=== PATIENT | female | born 1970 | race Hispanic/Latino ===

== ENCOUNTER 2018-01-19 16:26 | Emergency (ER) | payer OTHER, MEDICARE ==
[2018-01-19 16:32] VITALS: BMI 33.9
--- NOTE | 2018-01-19 18:05 | ED PDOC ---
HPI: Headache Time Seen by Provider: 01/19/18 16:51 Chief Complaint (Nursing): Weakness/Neurological Deficit Chief Complaint (Provider): headache History/Exam Limitations: no limitations Quality: Sharp Preceeding Symptoms: Visual Disturbances Associated Symptoms: Blurred Vision. denies: Nausea, Vomiting Additional Complaint(s): 47yo w h/o posttraumatic epilepsy and hypothyroid, reports RIGHT sided facial weakness and numbness. Started Friday morning (2 days ago) and was preceded by eye allergy symptoms RIGHT eye the day prior (tearing, redness) which have since resolved. She reports inability to move muscles around RIGHT eye and check , but this also has improved and has only milder decrease strength. However evening at 11pm pt had sudden onset severe sharp posterior headache, midline, persisted throughout the evening and after multiple attempts for migraine relief (thought this did not feel like her typical migraine,) she took ibuprofen 800mg and by 8am headache improved, but persists mildly. Presented to PMD and when pt was unable to read with RIGHT eye, advised ER evaluation. Denies fever, denies weakness or numbness elsewhere. Past Medical History Reviewed: Historical Data, Nursing Documentation, Vital Signs Vital Signs: Last Vital Signs Temp 97.6 F 01/19/18 16:32 Pulse 96 H 01/19/18 16:32 Resp 20 01/19/18 16:32 BP 127/74 01/19/18 16:32 Pulse Ox 97 01/19/18 16:32 - Medical History PMH: Hypothyroidism, Seizures - Surgical History Surgical History: Appendectomy, Cholecystectomy, Tonsillectomy Other surgeries: Pancreatic duct correction, multiple times - Family History Family History: States: Hypertension - Social History Current smoker - smoking cessation education provided: No Alcohol: None Drugs: Denies - Home Medications Home Medications: Ambulatory Orders Medication Instructions Recorded Cyclobenzaprine [Flexeril] 5 mg PO Q8 PRN #10 tab 01/19/18 predniSONE [Prednisone] 60 mg PO DAILY 10 Days tab 01/19/18 - Allergies Allergies/Adverse Reactions: Allergies Allergy/AdvReac Type Severity Reaction Status Date / Time phenytoin [From Dilantin] Allergy RASH Verified 01/19/18 16:34 Sulfa (Sulfonamide Allergy RASH Verified 01/19/18 16:34 Antibiotics) Review of Systems ROS Statement: Except As Marked, All Systems Reviewed And Found Negative (and as per HPI) Eyes: Positive for: Vision Change, Redness Musculoskeletal: Positive for: Neck Pain Neurological: Positive for: Weakness, Numbness, Headache. Negative for: Incoordination, Change in Speech, Confusion, Seizures Physical Exam - Reviewed Nursing Documentation Reviewed: Yes Vital Signs Reviewed: Yes - Physical Exam Appears: Positive for: Non-toxic, No Acute Distress Head Exam: Positive for: ATRAUMATIC, NORMOCEPHALIC Skin: Positive for: Warm, Dry Eye Exam: Positive for: EOMI, PERRL ENT: Negative for: Pharyngeal Erythema, Tonsillar Exudate Neck: Positive for: Painless ROM, Supple Cardiovascular/Chest: Positive for: Regular Rate, Rhythm, Chest Non Tender. Negative for: Murmur Respiratory: Positive for: Normal Breath Sounds. Negative for: Wheezing, Respiratory Distress Gastrointestinal/Abdominal: Positive for: Soft. Negative for: Tenderness Back: Positive for: Normal Inspection. Negative for: L CVA Tenderness, R CVA Tenderness Extremity: Positive for: Normal ROM. Negative for: Capillary Refill Lymphatic: Negative for: Adenopathy Neurologic/Psych: Positive for: Alert, Oriented (x3), Motor/Sensory Deficits ( RIGHT face: subtle decreased light touch), Cerebellar Tests (normal). Negative for: Aphasia, Facial Droop - Laboratory Results Result Diagrams: 01/19/18 18:09 01/19/18 18:09 - ECG O2 Sat by Pulse Oximetry: 97 Medical Decision Making Medical Decision [place] woman w h/o migraine w transient RIGHT facial droop and persistent numbness and severe headache Ddx include but not limited to ICH, intracerebral mass, atypical migraine, [place] palsy. Time: 1846 CT Head FINDINGS: HEMORRHAGE: No intracranial hemorrhage. BRAIN: No mass effect or edema. No atrophy or chronic microvascular ischemic changes. VENTRICLES: Unremarkable. No hydrocephalus. CALVARIUM: Unremarkable. PARANASAL SINUSES: Unremarkable as visualized. No significant inflammatory changes. MASTOID AIR CELLS: Unremarkable as visualized. No inflammatory changes. OTHER FINDINGS: Cavum septum pellucidum common normal variant IMPRESSION: No acute intracranial abnormalities. No significant findings to account for the clinical presentation. Time: 2113 CTA Head FINDINGS: RIGHT INTERNAL CAROTID ARTERY: No acute findings. Intracranial segment is patent with no significant stenosis. No aneurysm. RIGHT ANTERIOR CEREBRAL ARTERY: Unremarkable. No occlusion or significant stenosis. No aneurysm. RIGHT MIDDLE CEREBRAL ARTERY: Unremarkable. No occlusion or significant stenosis. No aneurysm. RIGHT POSTERIOR CEREBRAL ARTERY: Unremarkable. No occlusion or significant stenosis. No aneurysm. RIGHT VERTEBRAL ARTERY: Unremarkable as visualized. LEFT INTERNAL CAROTID ARTERY: No acute findings. Intracranial segment is patent with no significant stenosis. No aneurysm. LEFT ANTERIOR CEREBRAL ARTERY: Unremarkable. No occlusion or significant stenosis. No aneurysm. LEFT MIDDLE CEREBRAL ARTERY: Unremarkable. No occlusion or significant stenosis. No aneurysm. LEFT POSTERIOR CEREBRAL ARTERY: Unremarkable. No occlusion or significant stenosis. No aneurysm. LEFT VERTEBRAL ARTERY: Unremarkable as visualized. BASILAR ARTERY: Unremarkable. No occlusion or significant stenosis. No aneurysm. IMPRESSION: No acute findings Time: 2121 CTA Neck FINDINGS: VASCULATURE: RIGHT COMMON CAROTID ARTERY: Unremarkable. No significant stenosis. No dissection or occlusion. RIGHT INTERNAL CAROTID ARTERY: Unremarkable. Extracranial segment is patent with no significant stenosis. No dissection or occlusion. RIGHT EXTERNAL CAROTID ARTERY: Unremarkable. No occlusion. RIGHT VERTEBRAL ARTERY: Unremarkable. No significant stenosis. No dissection or occlusion. LEFT COMMON CAROTID ARTERY: Unremarkable. No significant stenosis. No dissection or occlusion. LEFT INTERNAL CAROTID ARTERY: Unremarkable. Extracranial segment is patent with no significant stenosis. No dissection or occlusion. LEFT EXTERNAL CAROTID ARTERY: Unremarkable. No occlusion. LEFT VERTEBRAL ARTERY: Unremarkable. No significant stenosis. No dissection or occlusion. NECK: BONES/JOINTS: No acute fracture. SOFT TISSUES: Unremarkable as visualized. CAROTID STENOSIS REFERENCE USING NASCET CRITERIA: % ICA stenosis = (1 - narrowest ICA diameter/diameter of distal cervical ICA) x 100. Mild - <50% stenosis. Moderate - 50-69% stenosis. Severe - 70-94% stenosis. Near occlusion - 95-99% stenosis. Occluded - 100% stenosis. IMPRESSION: No acute findings. Stained RIGHT globe with flucaine. Negative for corneal abrasion. DW pt findings and plan of care. Rx as bells palsy. Pt has neurologist due to seizure disorder. Advised urgent follow up (within 2 days.) Disposition - Clinical Impression Clinical Impression: Calhoun's palsy - Disposition Referrals: [facility] [Outside] Rafita Viera MD [Staff Provider] - Marcello Berrios MD [Medical Doctor] - Disposition: Routine/Home Disposition Time: 22:00 Condition: STABLE Additional Instructions: FOLLOW UP WITH NEUROLOGIST AND INVOICE CLASSIFICATION CLERK THIS WEEK. CALL TOMORROW TO SCHEDULE APPOINTMENT WITHIN 48 HOURS. YOU CAN ALSO CONTACT [facility] FOR ASSISTANCE WITH FOLLOWUP. CONTINUE ALL YOUR MEDICATIONS PRESCRIBED Prescriptions: Cyclobenzaprine [Flexeril] 5 mg PO Q8 PRN #10 tab PRN Reason: muscle spasm predniSONE [Prednisone] 60 mg PO DAILY 10 Days tab Instructions: Calhoun's Palsy Forms: [facility] ED School/Work Excuse
[2018-01-19 18:15] LABS: BASO # 0.1 K/uL (0.0-0.2); BASO % 1.4 % (0.0-2.0); EOS # 0.1 K/uL (0.0-0.7); EOS % 1.6 % (0.0-4.0); LYMPH # 2.2 K/uL (1.0-4.3); LYMPH % 33.4 % (20.0-40.0); MEAN CELL VOLUME 90.3 fl (81.0-99.0); MEAN CORPUSCULAR HEMOGLOBIN 31.2 pg (27.0-31.0); MEAN CORPUSCULAR HGB CONC 34.6 g/dL (33.0-37.0); MEAN PLATELET VOLUME 8.6 fl (7.2-11.7); MONO # 0.6 K/uL (0.0-0.8); MONO % 9.5 % (0.0-10.0); NEUT # 3.5 K/uL (1.8-7.0); NEUT % 54.1 % (50.0-75.0); RBC 4.81 Mil/uL (3.80-5.20); RED CELL DISTRIBUTION WIDTH 12.8 % (11.5-14.5); WHITE BLOOD COUNT 6.5 K/uL (4.8-10.8)
[2018-01-19 18:28] LABS: SQUAMOUS EPITHIAL 6 /hpf (0-5); URINE BACTERIA FEW (<OCC); URINE BILIRUBIN NEGATIVE (NEGATIVE); URINE BLOOD NEGATIVE (NEGATIVE); URINE CLARITY CLOUDY (Clear); URINE COLOR YELLOW (YELLOW); URINE GLUCOSE (UA) NEG (Normal); URINE LEUKOCYTE ESTERASE MOD Leu/uL (Negative); URINE PROTEIN NEGATIVE (NEGATIVE); URINE UROBILINOGEN 0.2-1.0 mg/dL (0.2-1.0)
[2018-01-19 18:31] LABS: ALB/GLOB RATIO 1.1 (1.0-2.1); ALT/SGPT 32 U/L (9-52); AST/SGOT 25 U/L (14-36); BLOOD UREA NITROGEN 12 mg/dl (7-17); CALCIUM 9.5 mg/dL (8.4-10.2); GFR AFRICAN-AMERICAN > 60; GFR NON-AFRICAN AMERICAN > 60
[2018-01-19 18:47] LABS: INR 0.9 (0.9-1.2); PROTHROMBIN TIME 10.4 Seconds (9.8-13.1)
--- NOTE | 2018-01-19 18:51 | CT ---
PROCEDURE: CT HEAD WITHOUT CONTRAST. HISTORY: Severe headache, blurred vision and right facial numbness COMPARISON: None available. TECHNIQUE: Axial computed tomography images were obtained through the head/brain without intravenous contrast. Coronal and sagittal reconstructed images. Radiation dose: Total exam DLP = 808.52 mGy-cm. This CT exam was performed using one or more of the following dose reduction techniques: Automated exposure control, adjustment of the mA and/or kV according to patient size, and/or use of iterative reconstruction technique. FINDINGS: HEMORRHAGE: No intracranial hemorrhage. BRAIN: No mass effect or edema. No atrophy or chronic microvascular ischemic changes. VENTRICLES: Unremarkable. No hydrocephalus. CALVARIUM: Unremarkable. PARANASAL SINUSES: Unremarkable as visualized. No significant inflammatory changes. MASTOID AIR CELLS: Unremarkable as visualized. No inflammatory changes. OTHER FINDINGS: Cavum septum pellucidum common normal variant IMPRESSION: No acute intracranial abnormalities. No significant findings to account for the clinical presentation.
[2018-01-19 19:15] LABS: ALBUMIN 4.2 g/dL (3.5-5.0)
[2018-01-19 19:32] LABS: BARBITURATES, UR NEGATIVE (NEGATIVE); BENZODIAZEPINES, UR NEGATIVE (NEGATIVE); OPIATES, UR NEGATIVE (NEGATIVE); PHENCYCLIDINE, UR NEGATIVE (NEGATIVE)
[2018-01-19] MEDS ORDERED: Iodixanol 320 MG/ML 100 ML BOTTLE IV ONE (20:19)
[2018-01-19] MEDS ORDERED: Sodium Chloride 0.9% 50 ML IV ONE (20:19)
[2018-01-19] MEDS ORDERED: PROPARACAINE/FLUORESCEIN SOD 100 DROP/5 ML BOTTLE OD STA (21:56)
[2018-01-19 22:57] VITALS: BP 138/77; PULSE 83; RESP 16; TEMP 98.4
--- NOTE | 2018-01-20 17:49 | CT ---
PROCEDURE: CT Angiography of the Brain. HISTORY: sharp head and neck pain with RIGHT facial symptom COMPARISON: None available. TECHNIQUE: CT angiography of the intracranial and neck arteries was performed. Coronal and sagittal maximum intensity projection reformatted images were generated. Contrast Dose: Visipaque 320, 100 cc Radiation dose:Total exam DLP = 2100.25 mGy-cm. This CT exam was performed using one or more of the following dose reduction techniques: Automated exposure control, adjustment of the mA and/or kV according to patient size, and/or use of iterative reconstruction technique. FINDINGS: INTERNAL CEREBRAL ARTERIES: Unremarkable. The skull base, petrous, cavernous and supraclinoid segments are bilaterally widely patent. ANTERIOR CEREBRAL ARTERIES: Unremarkable. A1 and A2 segments are widely patent. Smaller distal branches unremarkable, as visualized. MIDDLE CEREBRAL ARTERIES: Unremarkable. M1 and M2 segments are widely patent. Perisylvian branches grossly symmetric. POSTERIOR CIRCULATION: Basilar Artery: Unremarkable. Distal Vertebral Arteries: Unremarkable. Codominant vertebrobasilar anatomical pattern. Posterior Cerebral Arteries: Unremarkable. Posterior Inferior Cerebellar Arteries: Unremarkable. NECK CTA: Common Carotid arteries: The bilateral common carotid appear widely patent from their origins to their bifurcations with no significant stenosis appreciated. No evidence to suggest common carotid artery dissection. Note is made of bovine origin of the left common carotid and right brachiocephalic arteries off the aortic arch. Internal Carotid arteries: No significant stenosis is appreciated throughout the cervical internal carotid artery segments bilaterally and there is no evidence of dissection either. External Carotid arteries: Appear unremarkable bilaterally. Vertebral arteries: The bilateral vertebral arteries appear normal in caliber from their origins to their junction with the basilar artery. No significant stenosis or definite pattern of dissection. ANEURYSM/ VASCULAR MALFORMATIONS: None. OTHER FINDINGS: None. IMPRESSION: 1. No occlusion or significant stenosis involving the intracranial and neck major arteries as discussed above. 2. 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
[2018-01-22 23:50] VITALS: O2SAT 97
== END 2018-01-19 22:40 | disposition home or self-care (01) ==
LOC: H.ER 16:26
DX: G51.0 Bell's palsy (principal); G40.909 Epilepsy, unspecified, not intractable, without status epilepticus; E03.9 Hypothyroidism, unspecified
CPT/HCPCS: 70450; 70496; 70498; 80053; 80184; 80324; 80345; 80346; 80349; 80353; 80358; 80361; 81003; 81025; 83735; 83992; 84100; 84443; 85025; 85610; 85730; 87086; 99285; Q9967